=== PATIENT | female | born 1975 | race Two or more races ===

== ENCOUNTER 2017-02-02 18:31 | Emergency (ER) | payer MEDICAID, OTHER ==
--- NOTE | 2017-02-02 18:35 | EDPHY ---
H & P HPI/ROS: HPI CHIEF COMPLAINT: Urinary frequency, foul-smelling urine, back pain, subjective fever HISTORY OF PRESENT ILLNESS: This patient is a very pleasant 41-year-old female otherwise healthy, no significant medical history she tells me she has had a tubal ligation, she presents emergency room with urinary frequency, foul- smelling urine, low back pain and subjective fever at home. No recorded temp. No vomiting. No significant abdominal pain. Does complain of suprapubic pressure. Denies significant vaginal discharge. Past Medical History: Kidney stone Past Surgical History: Tubal ligation Social History: Denies daily use drugs alcohol tobacco products. Family History: Noncontributory ROS REVIEW OF SYSTEMS: A comprehensive 10 point review of systems is otherwise negative aside from elements mentioned in the history of present illness. Exam Constitutional appears well nontoxic, triage nursing summary reviewed, vital signs reviewed, awake/alert. Eyes normal conjunctivae and sclera, EOMI, PERRLA. HENT normal inspection, atraumatic, moist mucus membranes, no epistaxis, neck supple/ no meningismus, no raccoon eyes. Respiratory clear to auscultation bilaterally, normal breath sounds, no respiratory distress, no wheezing. Cardiovascular rate normal, regular rhythm, no murmur, no edema, distal pulses normal. Gastrointestinal soft, very mild suprapubic tenderness, no rebound, no guarding, normal bowel sounds, no distension, no pulsatile mass. Genitourinary very mild bilateral CVA tenderness, Musculoskeletal no midline vertebral tenderness, full range of motion, no calf swelling, no tenderness of extremities, no meningismus, good pulses, neurovascularly intact. Skin pink, warm, & dry, no rash, skin atraumatic. Neurologic awake, alert and oriented x 3, AAOx3, moves all 4 extremities equally, motor intact, sensory intact, CN II-XII intact, normal cerebellar, normal vision, normal speech. Psychiatric normal mood/affect. Heme/Lymph/Immune no lymphadenopathy. Differential Diagnosis: Includes but is not limited to in a particular order, urinary tract infection, pyelonephritis, cystitis, kidney stone Medical Decision Making: Plan for this patient check urinalysis. She appears well here nontoxic no acute distress normal vital signs. Do not think she will benefit from blood draw or IV establishment. Check urinalysis and urine test. Re-evaluation: 1911: UA reviewed. Shows UTI. Will send for Culture. Will start on Pyridium and Keflex. She appears well non-toxic. NAD. Urine culture sent. 1st dose of Keflex and Pyridium given here in the emergency room. Take-home pack given. Return emergency room if there is any worsening symptoms includes worsening back pain, fever, vomiting she understands. Return precautions given. No indication for blood work or CT imaging at this time. Urinalysis indicates UTI. Source: Patient Constitutional: Initial Vital Signs Temperature (C) 37.4 C 02/02/17 18:40 Heart Rate 88 02/02/17 18:40 Respiratory Rate 16 02/02/17 18:40 Blood Pressure 107/70 02/02/17 18:40 O2 Sat (%) 96 02/02/17 18:40 O2 Delivery Mode Room Air Allergies/Adverse Reactions: No Known Allergies Allergy (Verified 02/02/17 18:39) Home Medications: Medication Instructions Recorded Cephalexin [Keflex] 500 mg PO Q6H #28 cap 02/02/17 Phenazopyridine HCl [Pyridium] 200 mg PO TID #15 tab 02/02/17 Supplements 02/02/17 Medical Decision Making - Data Points Laboratory Results: 02/02/17 02/02/17 18:55 18:55 Urine Color YELLOW Urine Appearance HAZY Urine pH 7.0 (5.0-7.5) Ur Specific [place] 1.010 (1.002-1.030) Urine Protein NEGATIVE (NEGATIVE) Urine Ketones TRACE H (NEGATIVE) Urine Blood 1+ H (NEGATIVE) Urine Nitrate NEGATIVE (NEGATIVE) Urine Bilirubin NEGATIVE (NEGATIVE) Urine Urobilinogen 1.0 EU EU (0.2-1.0) Ur Leukocyte Esterase 1+ H (NEGATIVE) Urine RBC 0-1 /hpf /hpf (0-3) Urine WBC 5-10 /hpf H /hpf (0-3) Ur Epithelial Cells 1+ /lpf /lpf (NONE-1+) Urine Bacteria 2+ /hpf H /hpf (NONE SEEN) Urine Glucose NEGATIVE (NEGATIVE) Urine Test NEGATIVE Departure - Departure Disposition: Home, Routine, Self-Care Clinical Impression: Urinary tract infection Qualifiers: Urinary tract infection type: acute cystitis Hematuria presence: with hematuria Qualified Code(s): N30.01 - Acute cystitis with hematuria Condition: Good Instructions: Urinary Tract Infection in Women (ED) Additional Instructions: 1. Drink lots of fluids. 2. Return emergency room if he develops worsening symptoms includes high fever, vomiting worsening pain. Referrals: NONE *PRIMARY CARE P,. [Primary Care Provider] - As per Instructions Prescriptions: Cephalexin [Keflex] 500 mg PO Q6H #28 cap Phenazopyridine HCl [Pyridium] 200 mg PO TID #15 tab
[2017-02-02 18:46] VITALS: PULSE 88; RESP 16; TEMP 99.3; O2SAT 96
[2017-02-02 19:01] LABS: COLOR YELLOW; LEUKOCYTE ESTERASE,URINE 1+ (NEGATIVE); NITRITE,URINE NEGATIVE (NEGATIVE)
[2017-02-02 19:18] LABS: RBC,URINE 0-1 /hpf (0-3)
[2017-02-02 19:19] LABS: BACTERIA 2+ /hpf (NONE SEEN)
[2017-02-02] MEDS ORDERED: CEPHALEXIN 500 MG CAP PO ONE (19:27)
[2017-02-02] MEDS ORDERED: CEPHALEXIN 500MG PREPACK#4 BTL TAKEHOME ONE (19:27)
[2017-02-02] MEDS ORDERED: PHENAZOPYRIDINE HCL 200 MG TAB PO ONE (19:27)
[2017-02-02 19:48] VITALS: BP 120/76
== END 2017-02-02 19:47 | disposition home or self-care (01) ==
LOC: CED 18:31
DX: N30.01 Acute cystitis with hematuria (principal); B96.89 Other specified bacterial agents as the cause of diseases classified elsewhere
CPT/HCPCS: 81003-PO; 81015-PO; 81025-PO